=== PATIENT | female | born 1945 ===

== ENCOUNTER 2018-12-23 21:51 | Emergency (ER) | payer SELFPAY ==
[~2018-12-23] VITALS: Ht 175.3 cm; Wt 117.9 kg
[2018-12-23 22:11] VITALS: BP_SYST 150
[2018-12-23] MEDS ORDERED: ASPIRIN 325 MG TABLET PO ONE (22:30)
[2018-12-23 23:08] LABS: BASOPHILS % (AUTO) 0.1 % (0.0-2.0); LYMPHOCYTES # (AUTO) 0.5 K/uL (1.0-5.5); MEAN CORPUSCULAR HEMOGLOBIN 31 pg (27-31); NEUTROPHILS # (AUTO) 1.7 K/uL (1.8-7.7)
[2018-12-23 23:16] LABS: EOSINOPHILS % (AUTO) 1.1 % (0.0-4.0); HEMATOCRIT 38.2 % (36-48); MEAN CORPUSCULAR HGB CONC 34 % (32-36); MEAN CORPUSCULAR VOLUME 90 fL (79.0-98.0); MONOCYTES % (AUTO) 1.3 % (1.7-9.3); NEUTROPHILS % (AUTO) 74.5 % (40.0-70.0); PLATELET COUNT (AUTO) 188 K/uL (130-430); RED BLOOD CELL COUNT(AUTO) 4.26 MIL/uL (4.2-6.2); RED CELL DISTRIBUTION WIDTH 13.4 % (9.0-15.0)
[2018-12-23 23:20] LABS: ANION GAP 13 (5-15); CALCIUM 8.2 mg/dL (8.4-11.0); CHLORIDE 105 mmol/L (98-107); CREATININE 0.92 mg/dL (0.55-1.30); GLUCOSE 134 mg/dL (70-99); POTASSIUM 3.2 mmol/L (3.5-5.1); SODIUM SERUM 139 mmol/L (136-145); UREA NITROGEN, BLOOD 17 mg/dL (8-21)
[2018-12-23 23:21] LABS: WHITE BLOOD COUNT (AUTO) 2.3 K/uL (4.8-10.8)
[2018-12-23 23:32] LABS: ALANINE AMINOTRANSFERASE 176 U/L (12-78); ALBUMIN 2.8 g/dL (3.4-4.8); ASPARTATE AMINOTRANSFERASE 348 U/L (10-37); TOTAL BILIRUBIN 0.8 mg/dL (0.0-1.0)
[2018-12-23] MEDS ORDERED: ONDANSETRON HCL 4 MG/2 ML VIAL IVP ONE (23:45)
[2018-12-23] MEDS ORDERED: ONDANSETRON HCL 4 MG/2 ML VIAL ONE (23:49)
[2018-12-24 00:45] LABS: PROTHROMBIN TIME 9.8 SECS (9.5-12.5)
[2018-12-24] MEDS ORDERED: MAG HYDROX/AL HYDROX/SIMETH 30 ML, LIDOCAINE VISCOUS 2% 15ML (PO) 10 ML, DICYCLOMINE HC... PO ONE ×3 (01:45)
[2018-12-24 02:31] VITALS: BP_SYST 150
== END 2018-12-24 02:31 | disposition home or self-care (01) ==
LOC: SED 21:51
DX: K29.70 Gastritis, unspecified, without bleeding (principal); E11.9 Type 2 diabetes mellitus without complications; I10 Essential (primary) hypertension
CPT/HCPCS: 36415; 71045; 80053; 82550; 82962; 83880; 84484; 85025; 85610; 93005; 96374; 99284; J2001; J2405